=== PATIENT | male | born 1950 | race Caucasian/White ===

== ENCOUNTER → 2017-01-09 | Outpatient (CLI) | payer OTHER, BC ==
[~2017-01-09] MED LIST: CLONAZEPAM 1 MG1 M1 PO; CYCLOBENZAPRINE10 MG PO; HYDROCODON-ACE1 EAC7 PO; IBUPROFEN 200200 M1 PO; MEDROLDOSEPACK PO; NORCO 5-325 TA1 EACH PO; SERTRALINE HCL50 MG PO; TRAZODONE HCL50 MG PO
== END ==
LOC: RAD 10:40
DX: M25.559 Pain in unspecified hip (principal)

== ENCOUNTER → 2018-06-09 | Outpatient (CLI) | payer OTHER, BC ==
[~2018-06-09] VITALS: Ht 177.8 cm; Wt 70.3 kg
[~2018-06-09] MED LIST changes: +ZONEGRAN 25 MG25 M1 PO
--- NOTE | ~2018-06-09 | PATH ---
[facility] [place] [address] PATHOLOGY RPT PROCEDURE Name: OLEGARIO CAMARA Room #: REG CL M.R.#: [id number] Admission: 06/09/18 Date of : 52 Discharge: Report #: [id number] Path Case #: [id number] [facility] Accession Number: [id number] . 01 Material submitted: . PART A: RANDOM R SIDE COLON BIOPSIES R/O MICROSCOPIC COLITIS PART B: RANDOM L SIDE COLON BIOPSIES R/O MICROSCOPIC COLITIS PART C: ASCENDING COLON POLYP BX PART D: TRANSVERSE COLON POLYP BX . 01 Clinical history: . Pre-OP DX: Screening, change in bowel habits Post-OP DX: Colon polyps, internal hemorrhoids Rule out microscopic colitis . 02 Diagnosis: A. Colonic mucosa "random right side colon biopsy, rule out microscopic colitis": - No obvious diagnostic changes. - There is no evidence of acute cryptitis, granulomas, adenomatous change, changes of microscopic colitis, or malignancy. . B. Colonic mucosa "random left side colon biopsies, rule out microscopic colitis": - No obvious diagnostic changes. - There is no evidence of acute cryptitis, granulomas, adenomatous change, changes of microscopic colitis, or malignancy. . C. Colonic mucosa "ascending colon polyp biopsies": - Fragments of tubular adenoma. - There is no evidence of high-grade dysplasia or malignancy. . D. Colonic mucosa "transverse colon polyp biopsy": - Tubular adenoma. - Benign lymphoid follicle. - There is no evidence of high-grade dysplasia or malignancy. (SHA:[facility] 06/10/2018) QTP/06/10/2018 . 02 Electronically signed: . Robbie Hernandez MD, Pathologist NPI- [id number] . 01 Gross description: . A. Received in formalin labeled "Olegario Camara, random right side colon biopsies," are 5 segments of oscar soft tissue measuring 1.4 x 0.9 x 0.2 cm in aggregate dimensions and ranging from 0.4 to 0.7 [place] [address] PATHOLOGY RPT PROCEDURE Name: OLEGARIO CAMARA Room #: REG [facility].#: [id number] Admission: 06/09/18 Date of : 52 Discharge: Report #: [id number] Path Case #: [id number] dimension. The specimen is submitted entirely in cassette A1. . B. Received in formalin labeled "Olegario Camara, random left side colon biopsies," are 7 segments of oscar soft tissue measuring 2.3 x 0.9 x 0.2 cm in aggregate dimensions and ranging from 0.4 to 0.5 cm in maximum dimension. The specimen is submitted entirely in cassette B1. . C. Received in formalin labeled "Olegario Camara, ascending colon polyp BX," are 4 segments of oscar soft tissue measuring 0.9 x 0.7 x 0.2 cm in aggregate dimensions and ranging from 0.4 to 0.5 cm in maximum dimension. The specimen is submitted entirely in cassette C1. . D. Received in formalin labeled "Olegario Camara, transverse colon polyp BX," is a single segment of oscar soft tissue measuring 0.3 cm in maximum dimension. The specimen is entirely submitted in cassette D1. (TSD; 06/09/2018) TOB/TOB . 02 Pathologist provided ICD-10: D12.2, D12.3, Z12.11, R19.4 . 02 CPT . 858645, 347039, 719654, 207155 Specimen Comment: A courtesy copy of this report has been sent to Specimen Comment: [phone], . Specimen Comment: Report sent to / DR JACOBS Specimen Comment: A duplicate report has been generated due to demographic updates. Performed at: [address], [place] [id number] MD Marcos Crabtree MD Phone: [phone] Performed at: [address] [id number] MD Mary Ann Kennedy MD Phone: [phone]
== END | disposition home or self-care (01) ==
LOC: GI 09:34
DX: D12.3 Benign neoplasm of transverse colon (principal); D12.2 Benign neoplasm of ascending colon; K64.8 Other hemorrhoids; F32.9 Major depressive disorder, single episode, unspecified; F41.9 Anxiety disorder, unspecified; Z98.890 Other specified postprocedural states; Z88.6 Allergy status to analgesic agent; Z79.899 Other long term (current) drug therapy
CPT/HCPCS: 62110; 62900

== ENCOUNTER → 2020-02-10 | Outpatient (CLI) | payer OTHER, BC | LOC: ULTRA 07:34 | PROVIDERS: ATTEND Hospitalist | DX: N17.9 Acute kidney failure, unspecified (principal) ==

== ENCOUNTER → 2021-01-11 | Outpatient (CLI) | payer OTHER, BC | LOC: ULTRA 08:57 | PROVIDERS: ATTEND Neuromusculoskeletal Medicine & OMM | DX: K80.80 Other cholelithiasis without obstruction (principal); K91.1 Postgastric surgery syndromes; R14.0 Abdominal distension (gaseous) ==

== ENCOUNTER 2021-01-26 10:14 | Observation (INO) | payer OTHER, BC ==
[~2021-01-26] VITALS: Ht 177.8 cm; Wt 67.1 kg
[~2021-01-26 10:14] MED LIST changes: +FENOFIBRATE145 M1 PO; +NICOTINE GUM2 MG BUCCAL; +SERTRALINE HCL100 MG PO; +ZONEGRAN100 MG PO
[2021-01-26 12:38] VITALS: BP 153/86
[2021-01-26] MEDS ORDERED: HYDROCODON-ACE1 EAC7 PO (14:38)
[2021-01-26 15:13] VITALS: BP 131/76
[2021-01-26 16:57] VITALS: BP 131/76
--- NOTE | 2021-01-26 18:37 | NUR ---
Pt transferred to unit from PACU. Pt a&ox4. Pain under control. Dressings c/d/i. IVF infusing. Family at bedside. Pt able to ambulate and void. Discharge to home. Pain medicine prescription handed to pt.
--- NOTE | 2021-01-27 11:23 | O ---
[facility] [address] [place] [address] OPERATIVE REPORT Name: MOHINI CAMARA Room #: 438-P [facility] M.R.#: [id number] Admission: 01/26/21 Attend Phys: Cain Baires MD Discharge: 01/26/21 Date of : 52 Report #: [id number] THIS REPORT FOR: cc: Obey Turcios,Cain Staples MD ~ DOC #: [id number] cc: MD Cain Castle MD DATE OF SERVICE: 01/26/2021 PREOPERATIVE DIAGNOSIS: Cholecystitis with cholelithiasis. POSTOPERATIVE DIAGNOSIS: Cholecystitis with cholelithiasis. PROCEDURE PERFORMED: Laparoscopic cholecystectomy with cholangiogram. SURGEON: Cain Dorado MD ANESTHESIA: General anesthesia. COMPLICATIONS: None. ESTIMATED BLOOD LOSS: 5 mL. DESCRIPTION OF PROCEDURE: With the patient under general anesthesia, abdomen was prepped and draped in sterile fashion. IV antibiotic was administered. A timeout was performed. 0.25% Marcaine was used to anesthetize the skin infraumbilically. A 2 cm curvilinear incision was made infraumbilically. The abdominal wall was identified. The fascia was grasped with hemostat. Fascia was then opened under visualization infraumbilically close to the midline. 0 Vicryl sutures were placed on the fascial edges. A Veress needle was then placed through peritoneum. Abdominal cavity was insufflated with CO2. After creating pneumoperitoneum, an 11 mm trocar was placed under visualization into the pneumoperitoneum. No harm to the underlying tissue. Two 5 mm trocars placed in right upper quadrant and a 5 mm trocar placed in right epigastrium. The patient was placed in the reverse Trendelenburg position, right side tilted up. Fundus of the gallbladder was lifted cephalad and there was a fatty adhesion to the gallbladder consistent with chronic inflammation. The adhesion was freed up without difficulty. The gallbladder was isolated. A second grasper was placed in the proximal part of the gallbladder. The cystic duct and artery was dissected free by freeing the peritoneum. There was ____ around the cystic duct, likely also from chronic inflammation. The artery was isolated. The artery was then clipped x2 proximally, 1 distally and then divided. This then allowed full visualization of the cystic duct. Common duct was able to be [address] [address] OPERATIVE REPORT Name: MOHINI CAMARA Room #: 438-P [facility] Guerrero Delcid#: [id number] Admission: 01/26/21 Attend Phys: Cain Baires MD Discharge: 01/26/21 Date of : 52 Report #: [id number] visualized and noted to be medially and posteriorly located. Cystic duct was isolated and there was fibrosis around the cystic duct. A clip was placed at the junction of the cystic duct to the gallbladder. Opening was made in the cystic duct. Cholangiogram catheter was placed without difficulty. Fluoroscopic cholangiogram was obtained. The cholangiogram catheter was identified in the cystic duct. No harm to the common duct. Dye flowed readily into the common duct. No filling defect in the common duct. The entire biliary tree was able to visualize well. Cholangiogram catheter was then removed. The proximal cystic duct was then clipped x2 and divided. Gallbladder was then easily freed from the liver bed. Gallbladder was retrieved through the infraumbilical port. Gallbladder was opened off the field. There was sludgy material in the gallbladder. Also, 2 stones identified in the gallbladder that were small size. No other lesions identified. Liver bed was checked, hemostasis obtained. Irrigation was aspirated out. The patient was flattened out. CO2 was evacuated as much as possible. Irrigation was also aspirated out. Infraumbilical fascia defect was closed with [id number] 0 Vicryl x2. Skin was irrigated. Skin was then closed with 5-0 PDS. Steri-Strip and Band-Aids applied. The patient tolerated the procedure well. Cain Baires MD PYC/ERIN/DUANE <ELECTRONICALLY SIGNED> By: Cain Baires MD 01/27/21 1123 09 46 Cain Baires MD /nt
== END 2021-01-26 17:45 | disposition home or self-care (01) ==
LOC: OR 10:14 → 4S 15:11 → OR 16:28 → 4S 17:45
PROVIDERS: ADMIT Surgery; ATTEND Surgery
DX: K80.10 Calculus of gallbladder with chronic cholecystitis without obstruction (principal); Z20.822 Contact with and (suspected) exposure to COVID-19; M54.5 Low back pain
CPT/HCPCS: 50010; 50101; 50411; 50555; 50558; 51489; 52265; 53307; 53310; 55245; 55317; 56462; 56525; 56526; 58574; 62110; 62900; 70005